=== PATIENT | female | born 1975 | race Caucasian/White ===

== ENCOUNTER 2018-07-08 09:06 | Emergency (ER) | payer MEDICAID ==
[~2018-07-08] VITALS: Ht 170.2 cm; Wt 78.0 kg
[~2018-07-08 09:06] MED LIST: CYCL-1 PO
[2018-07-08] MEDS ORDERED: BUTE12CR TOP (10:09)
[2018-07-08 10:15] VITALS: BP 102/85
== END 2018-07-08 10:17 | disposition home or self-care (01) ==
LOC: ER 09:07
DX: B35.3 Tinea pedis (principal); I10 Essential (primary) hypertension; Z88.1 Allergy status to other antibiotic agents; Z79.899 Other long term (current) drug therapy
CPT/HCPCS: 99282

== ENCOUNTER 2021-02-03 20:39 | Emergency (ER) | payer MEDICAID ==
[~2021-02-03 20:39] MED LIST changes: +BUTE12CR TOP
== END 2021-02-03 21:32 | disposition left against medical advice (07) ==
LOC: ER 20:40
DX: M79.606 Pain in leg, unspecified (principal); Z53.21 Procedure and treatment not carried out due to patient leaving prior to being seen by health care provider

== ENCOUNTER 2023-02-14 08:34 | Emergency (ER) | payer MEDICAID ==
[~2023-02-14] VITALS: Ht 170.2 cm; Wt 81.8 kg
[~2023-02-14 08:34] MED LIST changes: +CITA-311 PO; +LURA80TA2 PO
[2023-02-14 14:16] VITALS: BP 126/87
== END 2023-02-14 15:11 | disposition home or self-care (01) ==
LOC: ER 08:34
DX: B18.2 Chronic viral hepatitis C (principal); F32.A Depression, unspecified; I10 Essential (primary) hypertension; F20.9 Schizophrenia, unspecified; Z88.0 Allergy status to penicillin; Z79.899 Other long term (current) drug therapy; Z79.1 Long term (current) use of non-steroidal anti-inflammatories (NSAID); Z79.2 Long term (current) use of antibiotics
CPT/HCPCS: 99281

== ENCOUNTER 2023-06-03 22:24 | Emergency (ER) | payer MEDICAID ==
[~2023-06-03] VITALS: Ht 172.7 cm; Wt 90.9 kg
[2023-06-03 22:46] VITALS: BP 114/81
[2023-06-03] MEDS ORDERED: TETanus/Pertussis (Acell)/Diphther VAC/PF (Tdap-Adult) 0.5ml syringe IMVAC ONE (22:50)
[2023-06-03] MEDS ORDERED: ibuprofen tablet 400 MG TABLET PO ONE (22:50)
[2023-06-03] MEDS ORDERED: DOXYCYCLINE 100MG CAPSULE PO STA (22:52)
[2023-06-03] MEDS ORDERED: clindamycin 150mg capsule PO ONE (22:55)
[2023-06-03] MEDS ORDERED: DOXY-356 PO (23:15)
[2023-06-03] MEDS ORDERED: CLIN300C70 PO (23:15)
[2023-06-03] MEDS ORDERED: LIDOcaine/epinephrine/tetracaine TOPICAL sol 3 ML syringe TOP STA (23:25)
== END 2023-06-04 00:23 | disposition home or self-care (01) ==
LOC: ER 22:25
DX: S21.012A Laceration without foreign body of left breast, initial encounter (principal); F32.A Depression, unspecified; I10 Essential (primary) hypertension; F20.9 Schizophrenia, unspecified; Z88.1 Allergy status to other antibiotic agents; Z79.899 Other long term (current) drug therapy; Z79.1 Long term (current) use of non-steroidal anti-inflammatories (NSAID); Z79.2 Long term (current) use of antibiotics; W54.0XXA Bitten by dog, initial encounter; Y93.89 Activity, other specified; Y92.89 Other specified places as the place of occurrence of the external cause; Y99.8 Other external cause status
CPT/HCPCS: 90471; 90715; 99284; A6222; J3490; 99283; A6258; A6402

== ENCOUNTER 2024-03-20 09:34 | Outpatient (CLI) | payer MEDICAID | END 2024-03-20 23:59 | disposition home or self-care (01) | LOC: RAD 09:34 | PROVIDERS: ATTEND Student in an Organized Health Care Education/Training Program | DX: M20.12 Hallux valgus (acquired), left foot (principal); M21.6X2 Other acquired deformities of left foot | CPT/HCPCS: 73630 ==

== ENCOUNTER 2025-11-09 14:16 | Emergency (ER) | payer MEDICAID ==
[~2025-11-09] VITALS: Ht 170.2 cm; Wt 103.5 kg
[~2025-11-09 14:16] MED LIST changes: +CLOT30CR19 TOP
[2025-11-09 14:30] VITALS: BP 124/86; PULSE 112; RESP 18; TEMP 97.2; O2SAT 97
[2025-11-09 15:08] LABS: LEUKOCYTE ESTERASE ,URINE NEGATIVE (Neg); NITRITES, URINE NEGATIVE (Neg); OCCULT BLOOD,URINE SMALL (Neg)
[2025-11-09 15:17] LABS: UA COLLECTION TYPE CLN CATCH MIDSTREAM
[2025-11-09 15:19] LABS: SQUAMOUS EPITHELIAL CELL,UR MODERATE /LPF (FEW)
--- NOTE | 2025-11-09 16:51 | Physician Documentation ---
History of Present Illness ~ Chief Complaint: Urinary Symptoms Stated Complaint: URINARY COMPLICATIONS Time Seen by MD: 15:17 OK to notify your PCP?: Yes Primary Medical Doctor: Marlen Haynes Source: patient Mode of Arrival: POV Exam Limitations: no limitations HPI This is a 50-year-old female who comes in stating that is she has had a couple episodes of involuntary urination. The patient is denies frequency, urgency or burning with urination. She says this happens randomly and this that has started a couple of days ago. She denies coleen blood in the urine. She is not complaining of abdominal or pelvic pain. She says she has had five children. That is she is also complaining of vaginal itching but she denies discharge Medication Reconciliation Allergies: Coded Allergies: Sulfa (Sulfonamide Antibiotics) (Verified Allergy, Unknown, 11/09/25) amoxicillin (Verified Allergy, Unknown, 11/09/25) Scheduled Butenafine HCl (Lotrimin Ultra), 1 APPLIC TOP BID Citalopram Hydrobromide (Celexa), 1 TAB PO DAILY Clotrimazole (Clotrimazole), 1 APPLIC TOP Q12H Lurasidone HCl (Latuda), 1 TAB PO HS Scheduled PRN Cyclobenzaprine* (Cyclobenzaprine*), 1 TABLET PO Q8H PRN for muscle spasms Past Medical History Past Medical History: Hypertension, Hepatitis C, UTI, Depression, Schizophrenia Past Surgical History: noncontributory Alcohol Use: Alcoholic Drug Use: none Lives In: Home Physical Exam Vital Signs: Temperature: 97.2, Heart Rate: 112, Respiratory Rate: 18, BP: 124/86, Pulse Oximetry: 97, Weight: 103.500 Oxygen Flow Rate: 0 Pulse Oximetry Reflects: adequate oxygenation General Appearance: alert, WD/WN, no apparent distress Gastrointestinal No tenderness to palpation x4 quadrants. No rigidity, rebound or guarding. Negative Echavarria's sign. Negative McBurney's point tenderness. Progress Results/Orders Results/Orders Completed Orders - PASCUAL WALSH Wet Prep (11/09/25 16:45) Vital Signs 11/09/25 14:30 Temp 97.2 Pulse 112 Resp 18 B/P (MAP) 124/86 Pulse Ox 97 O2 Flow Rate 0 Laboratory Tests Test 11/09/25 14:35 Urine Specimen Description Cln catch midstream Urine Color Yellow Urine Clarity Clear Urine pH 6.0 Urine Specific Emmett 1.015 Urine Protein Negative Urine Glucose (UA) Negative Urine Ketones Trace H Urine Occult Blood Small Urine Nitrite Negative Urine Bilirubin Small Urine Urobilinogen 0.2 Urine Leukocyte Esterase Negative Urine RBC 3-10 Urine WBC 0-4 Urine Squamous Epithelial Cells Moderate Urine Bacteria Few Urine Culture Indicated Not ind Volume Urine Centrifuged 10 ml Urine Comment Microbiology Date/Time Source Procedure Growth Status 11/09/25 17:00 Genital Vaginal Wet Prep - Final Complete Medical Decision Making Additional information obtaine: N/A Findings The patient's urinalysis and wet mount were both within normal limits. I believe the patient is urinary issues or secondary to stress incontinence that is she has had five children in the past. There was nothing to indicate anymore significant underlying etiology. The patient will be discharged home with the instructions to follow up with primary care physician for referral to [employer] equipment operator for evaluation of the stress incontinence. Return to the ER for any worsening or concerning symptoms Urinary Diff Dx:Considerations: Include: AAA, , Aortic dissection, Appendicitis, Bowel obstruction, Cholelithiasis, Choleangitis, DJD, Ectopic , Hepatitis, HNP, Impaction, Intrauterine , Musculoskeletal pain, Ovarian torsion, Pancreatitis, PID, Post-Op complication, Pyelonephritis, Renal failure, Strain, Urinary Obstruction, Urolithiasis, Urinary retention, UTI, Vaginitis, Other Genital Diff Dx:Considerations: Include: -Complete, - Incomplete, -Inevitable, Ablortion-Missed, -Threatened, Abruptio placentae, Bartholin abscess, Bartholin cyst, Blood loss anemia, Constipation, Cervicitis, Dsymenorrhea, Ectopic , Foreign body, Hormonal, Hidradenitis suppurativa, Intrauterine , Menorrhagia, Menometrorrhagia, Menstrual bleeding, Myomatous uterus, Perianal abscess, Physiologic discharge, Pinworms, PID, Placenta previa, , Precipitous Hct, Trauma, UTI, Vaginitis(osis)-Atrophic, Vaginitis, Vaginitis(osis)-Bacterial, Vaginitis(osis)- Candidal, Vaginitis(osis)-Contact, Vaginitis(osis)-Herpes, Vaginitis(osis)- Trich., Other Additional Comment Stress incontinence. UTI. Cystitis. Bacterial vaginosis. Vaginal candidiasis. Departure Disposition: HOME / SELF CARE / HOMELESS Impression: Primary Impression: Stress incontinence of urine Condition: Stable Discharge Instructions: Urinary Incontinence Additional Instructions: Follow up with the your primary care physician for referral to a [employer] equipment operator to address your urinary incontinence. Return for any concerns. Referrals: NO PRIMARY CARE PROVIDER (PCP) Signature Scribe Signature: No scribe Attestation: The note accurately reflects work and decisions made by me.Pascual BONILLA 11/09/25 17:38 PASCUAL WALSH Nov 09, 2025 16:51
== END 2025-11-09 17:50 | disposition home or self-care (01) ==
LOC: ER 14:17
DX: N39.3 Stress incontinence (female) (male) (principal); F20.9 Schizophrenia, unspecified; F32.A Depression, unspecified; I10 Essential (primary) hypertension; F10.90 Alcohol use, unspecified, uncomplicated; Z86.19 Personal history of other infectious and parasitic diseases; Z88.2 Allergy status to sulfonamides; Z87.440 Personal history of urinary (tract) infections; Z88.1 Allergy status to other antibiotic agents; Z79.899 Other long term (current) drug therapy; Y90.9 Presence of alcohol in blood, level not specified
CPT/HCPCS: 81001; 87210; 99283